=== PATIENT | male | born 1955 | race Hispanic/Latino ===

== ENCOUNTER 2016-12-01 11:08 | Emergency (ER) | payer MEDICARE ==
[2016-12-01 11:09] VITALS: PULSE 120; BMI 19.8
[2016-12-01 11:20] VITALS: RESP 18; TEMP 97.9
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
--- NOTE | 2016-12-01 12:41 | RAD ---
PROCEDURE: Radiographs of the Chest and Left Ribs. HISTORY: fall COMPARISON: 12/20/2015. TECHNIQUE: Frontal radiograph of the chest and multiple oblique radiographs of the left ribs were obtained. FINDINGS: LEFT RIBS: No fracture or focal lesion visualized. LUNGS: Clear. PLEURA: No pneumothorax or pleural fluid. CARDIOVASCULAR: Evaluation limited due to steep oblique positioning. Grossly normal. OTHER FINDINGS: None. IMPRESSION: Unremarkable radiographs of the chest and left ribs. No left rib fracture.
[2016-12-01 13:27] VITALS: BP 141/73; PULSE 80; O2SAT 98
--- NOTE | 2016-12-01 13:36 | RAD ---
PROCEDURE: Radiographs of the Left Shoulder HISTORY: fall COMPARISON: No prior. FINDINGS: BONES: Normal. No fracture. JOINTS: Normal. Glenohumeral and acromioclavicular joints preserved. No osteoarthritis. SOFT TISSUES: Normal. OTHER FINDINGS: None. IMPRESSION: Normal radiographs of the left shoulder.
== END 2016-12-01 13:44 | disposition home or self-care (01) ==
LOC: ED 11:08
DX: S29.9XXA Unspecified injury of thorax, initial encounter (principal); V19.3XXA Pedal cyclist (driver) (passenger) injured in unspecified nontraffic accident, initial encounter; Y93.55 Activity, bike riding; I10 Essential (primary) hypertension; E11.9 Type 2 diabetes mellitus without complications
CPT/HCPCS: 71101; 73030; 96372; 99283; J1885

== ENCOUNTER 2017-06-13 15:15 | Inpatient (IN) | payer MEDICARE, MEDICAID, OTHER ==
[2017-06-13 15:15] VITALS: PULSE 120
[2017-06-13 15:29] VITALS: BMI 30.4
--- NOTE | 2017-06-13 15:52 | ED PDOC ---
Arrival/HPI - General Time Seen by Provider: 06/13/17 15:24 Historian: Patient - History of Present Illness Narrative History of Present Illness (Text): 06/13/17 15:49 A 62 year old female, whose past medical history includes hypertension, diabetes and atrial fibrillation, presents to the emergency department complaining of diffuse abdominal discomfort for 3 days. Patient describes it as a cramping sensation. He notes associated generalized weakness and diaphoresis. Patient denies any fever, chills, nausea, vomiting, chest pain, shortness of breath or any other complaints. Time/Duration: Other (3 days) Symptom Course: Unchanged Quality: Other Context: Home Past Medical History - Provider Review Nursing Documentation Reviewed: Yes - Infectious Disease Hx of Infectious Diseases: None - Tetanus Immunization Tetanus Immunization: Unknown - Cardiac Hx Hypertension: Yes - Pulmonary Hx Tuberculosis: No - Neurological HX Cerebrovascular Accident: No Hx Seizures: No - HEENT Hx HEENT Disorder: (left eye intraocular lens implant) - Renal Hx Kidney Stones: Yes - Endocrine/Metabolic Hx Diabetes Mellitus Type 2: Yes - Hematological/Oncological Hx Cancer: No Hx Hepatitis C: Yes - Musculoskeletal/Rheumatological Hx Falls: No - Gastrointestinal Hx Gastrointestinal Disorders: (hiatal hernia) - Genitourinary/Gynecological Hx Sexually Transmitted Diseases: No - Psychiatric Hx Depression: Yes Hx Substance Use: No - Surgical History Hx Orthopedic Surgery: Yes (multiple orthopedic) - Anesthesia Hx Anesthesia Reactions: No Hx Malignant Hyperthermia: No - Suicidal Assessment Feels Threatened In Home Enviroment: No Family/Social History - Physician Review Nursing Documentation Reviewed: Yes Family/Social History: No Known Family HX Smoking Status: Never Smoked Hx Alcohol Use: No Hx Substance Use: No Hx Substance Use Treatment: No Allergies/Home Meds Allergies/Adverse Reactions: Allergies TOBACCO Allergy (Uncoded 12/01/16 11:20) VOMITING The smoke from tobacco Home Medications: Home Meds Medication Instructions Recorded Confirmed Alprazolam [Xanax] 2 mg PO DAILY 06/14/17 06/14/17 Ramipril [Altace] 1 cap PO ONCE 06/14/17 06/14/17 Sitagliptin Phos/Metformin HCl 1 tab PO BID 06/14/17 06/14/17 [Janumet 50-1,000 mg Tablet] Review of Systems - Physician Review All systems were reviewed & negative as marked: Yes - Review of Systems Constitutional: Other (Generalized weakness). absent: Fevers, Night Sweats Respiratory: absent: SOB Cardiovascular: absent: Chest Pain Gastrointestinal: Abdominal Pain. absent: Nausea, Vomiting Endocrine: Diaphoresis Physical Exam Vital Signs Reviewed: Yes Vital Signs Temp Pulse Resp BP Pulse Ox 06/13/17 19:30 98.2 F 80 16 168/86 H 96 06/13/17 19:11 79 20 151/104 H 96 06/13/17 17:15 75 18 104/58 L 95 06/13/17 15:40 98.0 F 77 16 102/44 L 94 L 06/13/17 15:39 98.0 F 77 18 102/44 L 93 L Temperature: Afebrile Blood Pressure: Hypotensive Pulse: Regular Respiratory Rate: Normal Appearance: Positive for: Well-Appearing, Non-Toxic, Comfortable Pain Distress: None Mental Status: Positive for: Alert and Oriented X 3 Finger Stick Blood Glucose: 333 - Systems Exam Head: Present: Atraumatic, Normocephalic Pupils: Present: PERRL Extroacular Muscles: Present: EOMI Conjunctiva: Present: Normal Mouth: Present: Moist Mucous Membranes Neck: Present: Normal Range of Motion Respiratory/Chest: Present: Clear to Auscultation, Good Air Exchange. No: Respiratory Distress, Accessory Muscle Use Cardiovascular: Present: Regular Rate and Rhythm, Normal S1, S2. No: Murmurs Abdomen: Present: Normal Bowel Sounds. No: Tenderness, Distention, Peritoneal Signs Back: Present: Normal Inspection Upper Extremity: Present: Normal Inspection. No: Cyanosis, Edema Lower Extremity: Present: Normal Inspection. No: Edema Neurological: Present: GCS=15, CN II-XII Intact, Speech Normal Skin: Present: Warm, Dry, Normal Color. No: Rashes Psychiatric: Present: Alert, Oriented x 3, Normal Insight, Normal Concentration Medical Decision Making ED Course and Treatment: 06/13/17 15:49 Impression: A 62 year old male with abdominal cramps. Plan: -- Chest xray -- EKG -- Labs -- Urinalysis -- Reassess and disposition Progress Notes: EKG shows NSR at [address]/T wave changes. Interpreted by me. 06/16/17 08:02 pt with dka. accepted to icu and dr ochoa service. - Lab Interpretations Lab Results: 06/13/17 16:00 06/13/17 16:00 Lab Results 06/13/17 17:45: Urine Color Yellow, Urine Appearance Clear, Urine pH 5.5, Ur Specific [place] >= 1.030, Urine Protein 100 H, Urine Glucose (UA) >=1000, Urine Ketones 40 H, Urine Blood Moderate H, Urine Nitrate Negative, Urine Bilirubin Negative, Urine Urobilinogen 0.2, Ur Leukocyte Esterase Negative, Urine RBC 0 - 2, Urine WBC 0 - 2, Ur Epithelial Cells 0 - 2, Urine Bacteria Few , Fine Granular Casts 0 - 2, Coarse Granular Casts Trace H 06/13/17 16:54: pO2 63 H, VBG pH 7.34, VBG pCO2 28.0 L, VBG HCO3 15.1 L, VBG Total CO2 16.0 L, VBG O2 Sat (Calc) 93.2 H, VBG Base Excess -9.2 L, VBG Potassium 4.0, Glucose 425 H* D, Lactate 1.6, FiO2 21.0, Sodium 131.0 L, Chloride 96.0 L, Venous Blood Potassium 4.0 06/13/17 16:00: Sodium 134, Potassium 4.3, Chloride 98, Carbon Dioxide 16 L, Anion Gap 24 H, BUN 27 H, Creatinine 1.0, Est GFR ( Amer) > 60, Est GFR ( Non-Af Amer) > 60, Random Glucose 404 H* D, Calcium 10.3, Magnesium 1.8, Total Bilirubin 1.5 H, AST 57, ALT 103 H, Alkaline Phosphatase 111, Lactate Dehydrogenase 510, Total Creatine Kinase 94, Troponin I < 0.01 D, Total Protein 9.0 H, Albumin 4.9 H, Globulin 4.2, Albumin/Globulin Ratio 1.2, Lipase 39 06/13/17 16:00: PT 11.1, INR 1.02, APTT 30.3 06/13/17 16:00: WBC 13.5 H D, RBC 5.83, Hgb 16.7, Hct 48.4, MCV 83.0, MCH 28.6, MCHC 34.5, RDW 14.1, Plt Count 234, MPV 10.9, Gran % 86.7 H, Lymph % (Auto) 10.1 L, [place] % (Auto) 3.0, Eos % (Auto) 0.1 L, Baso % (Auto) 0.1, Gran # 11.69 H , Lymph # 1.4, [place] # 0.4, Eos # 0.0, Baso # 0.02 I have reviewed the lab results: Yes - RAD Interpretation Radiology Orders: 06/13/17 15:47 CHEST PORTABLE [RAD] Stat 06/13/17 15:55 DUPLEX LOWER EXTRM VEIN BILAT [US] Stat - Medication Orders Current Medication Orders: Alprazolam (Xanax) 1 mg PO TID PRN; Protocol PRN Reason: Anxiety Alprazolam (Xanax) 2 mg PO HS [facility] PRN Reason: Protocol Stop: 06/22/17 22:01 Last Admin: 06/15/17 23:12 Dose: 2 mg Behavioural Document 06/15/17 23:12 CDL (Rec: 06/15/17 23:13 CDL [place] [id number]) Maintenance Maintenance Dose Yes Docusate Sodium (Colace) 100 mg PO DAILY [facility] Last Admin: 06/15/17 09:21 Dose: 100 mg Last Bowel Movement Document 06/15/17 09:21 JUR (Rec: 06/15/17 09:21 JUR [facility] Last Bowel Movement Last Bowel Movement 06/13/17 Glipizide (Glucotrol) 10 mg PO 0730,1630 [facility] Last Admin: 06/16/17 07:52 Dose: 10 mg Insulin Detemir (Levemir) 10 unit SC Q12 [facility] Last Admin: 06/15/17 23:09 Dose: Not Given Non-Admin Reason: Blood Sugar Parameter MAR Blood Glucose Document 06/15/17 23:09 CDE (Rec: 06/15/17 23:09 CDE [id number]) Blood Glucose Finger Stick Blood Glucose (70-120) 160 Insulin Human Lispro (Humalog Med) 0 units SC ACHS [facility] PRN Reason: Protocol Last Admin: 06/16/17 07:51 Dose: 1 units MAR Blood Glucose Document 06/16/17 07:51 RDS (Rec: 06/16/17 07:52 RDS [id number]) Blood Glucose Finger Stick Blood Glucose (70-120) 164 Subcutaneous Administrations Document 06/16/17 07:51 RDS (Rec: 06/16/17 07:52 RDS [id number]) Charges for Administration # of Subcutaneous Administrations 1 Lisinopril (Zestril) 10 mg PO DAILY [facility] Last Admin: 06/15/17 13:41 Dose: 10 mg Metformin HCl (Glucophage) 500 mg PO BID [facility] Last Admin: 06/15/17 17:34 Dose: 500 mg Morphine Sulfate (Morphine) 2 mg IVP Q4H PRN PRN Reason: Pain, severe (8-10) Ondansetron HCl (Zofran Inj) 4 mg IVP Q6H PRN PRN Reason: Nausea/Vomiting Last Admin: 06/14/17 08:34 Dose: 4 mg IVP Administration Document 06/14/17 08:34 [facility] (Rec: 06/14/17 08:34 [facility]) Charges for Administration # of IVP Administrations 1 Oxycodone/Acetaminophen (Percocet 5/325 Mg Tab) 1 tab PO Q6H PRN PRN Reason: Pain, moderate (4-7) Stop: 06/16/17 19:31 Pantoprazole Sodium (Protonix Ec Tab) 40 mg PO 0600 [facility] Last Admin: 06/16/17 06:02 Dose: 40 mg Sitagliptin Phosphate (Januvia) 100 mg PO DAILY [facility] Last Admin: 06/15/17 09:25 Dose: 100 mg Discontinued Medications Acetaminophen (Tylenol 325mg Tab) 650 mg PO STAT STA Stop: 06/14/17 19:45 Last Admin: 06/14/17 20:02 Dose: 650 mg [facility] Pain/Vitals Document 06/14/17 20:02 [facility] (Rec: 06/14/17 20:04 [facility] Pain Reassessment Is This A Pain ReAssessment? No Sleep Is patient sleeping during reassessment? No Presence of Pain Presence of Pain Yes Pain Scale Used Pain Scale Used Numeric Location Pain Location Body District Manager In Training Description Intermittent Intensity 8 Scale Used Numeric Site Observation headache Pain Behavior Facial Grimacing Aggravating Factors Changing Position Alleviating Factors Medication Re-Assess: [facility] Pain/Vitals Document 06/14/17 21:02 MHA (Rec: 06/15/17 04:56 [facility] Pain Reassessment Is This A Pain ReAssessment? Yes Sleep Is patient sleeping during reassessment? No Presence of Pain Presence of Pain No Pain Scale Used Pain Scale Used Numeric Alprazolam (Xanax) 1 mg PO ONCE ONE PRN Reason: Protocol Stop: 06/14/17 12:35 Last Admin: 06/14/17 16:21 Dose: 1 mg Behavioural Document 06/14/17 16:21 MMA (Rec: 06/14/17 16:21 MMA [facility] Maintenance Maintenance Dose Yes Nonmedicinal Nonmedicinal Interventions Therapeutic Communication Behavior Behavior for Medication: Anxiety Alprazolam (Xanax) 1 mg PO ONCE ONE PRN Reason: Protocol Stop: 06/14/17 16:16 Last Admin: 06/14/17 17:02 Dose: Alprazolam (Xanax) 1 mg PO STAT STA PRN Reason: Protocol Stop: 06/14/17 22:04 Last Admin: 06/14/17 22:15 Dose: 1 mg Behavioural Document 06/14/17 22:15 [facility] (Rec: 06/14/17 22:15 [facility] Maintenance Maintenance Dose Yes Nonmedicinal Nonmedicinal Interventions Activity Behavior Behavior for Medication: Anxiety Re-Assess: Reassess Psych Meds Document 06/14/17 23:15 [facility]HA (Rec: 06/15/17 04:55 MHA [facility] Reassess Psych Med Effective Alprazolam (Xanax) 0.5 mg PO TID PRN; Protocol PRN Reason: Anxiety Last Admin: 06/15/17 09:21 Dose: 0.5 mg Behavioural Document 06/15/17 09:21 JUR (Rec: 06/15/17 09:23 JUR [facility]) Maintenance Maintenance Dose Yes Behavior Behavior for Medication: Anxiety Clonidine HCl (Catapres) 0.1 mg PO STAT STA Stop: 06/14/17 19:44 Last Admin: 06/14/17 20:02 Dose: 0.1 mg MAR Pulse and Blood Pressure Document 06/14/17 20:02 [facility] (Rec: 06/14/17 20:02 [facility] Pulse Pulse Rate (60-90) 68 Blood Pressure Blood Pressure (100/60-150/90) 165/83 Hydralazine HCl (Apresoline) 5 mg IVP ONCE ONE Stop: 06/14/17 16:09 Last Admin: 06/14/17 16:18 Dose: 5 mg IVP Administration Document 06/14/17 16:18 MMA (Rec: 06/14/17 16:18 MMA [facility]) Charges for Administration # of IVP Administrations 1 MAR Pulse and Blood Pressure Document 06/14/17 16:18 [facility] (Rec: 06/14/17 16:18 [facility]) Pulse Pulse Rate (60-90) 50 Blood Pressure Blood Pressure (100/60-150/90) 199/85 Sodium Chloride (Sodium Chloride 0.9%) 1,000 mls @ 999 mls/hr IV .Q1H1M STA Stop: 06/13/17 17:26 Last Admin: 06/13/17 17:29 Dose: 999 mls/hr eMAR Start Stop Document 06/13/17 17:29 MS (Rec: 06/13/17 17:31 MS [facility]) Intravenous Solution Start Date 06/13/17 Start Time 17:30 Sodium Chloride (Sodium Chloride 0.9%) 1,000 mls @ 999 mls/hr IV .Q1H1M STA Stop: 06/13/17 18:07 Last Admin: 06/13/17 17:41 Dose: 999 mls/hr eMAR Start Stop Document 06/13/17 17:41 [facility] (Rec: 06/13/17 17:42 [facility] Intravenous Solution Start Date 06/13/17 Start Time 17:41 End Date 06/13/17 End time 18:14 Total Infusion Time 33 Insulin Human Regular 100 (units/ Sodium Chloride) 100 mls @ 5 mls/hr IV .Q20H PRN; Protocol; 5 UNITS/HR PRN Reason: TITRATE PER MD ORDER Last Titration: 06/14/17 10:03 Dose: 0 units/hr, 0 mls/hr Titration Intervention Document 06/14/17 10:03 [facility] (Rec: 06/14/17 12:04 [facility]) Titration Intake Titration Intake 26 Cumulative Intake 60 Cumulative Intake (Rx) 60 Waste Amount 0 Container Volume 40 Titration Dosing Titration Dose 0 IV Rate 0 Intake/Decrease Paused Cumulative Dose 60 Sodium Chloride (Sodium Chloride 0.9%) 1,000 mls @ 150 mls/hr IV .Q6H40M [facility] Last Admin: 06/14/17 03:44 Dose: 150 mls/hr eMAR Start Stop Document 06/14/17 03:44 B.P (Rec: 06/14/17 03:44 B.P [id number]) Intravenous Solution Start Date 06/14/17 Start Time 03:44 Famotidine (Pepcid 20mg/50ml Premix) 20 mg in 50 mls @ 100 mls/hr IVPB STAT ONE Stop: 06/14/17 01:53 Last Admin: 06/14/17 01:29 Dose: 100 mls/hr eMAR Start Stop Document 06/14/17 01:29 B.P (Rec: 06/14/17 01:29 B.P [id number]) Intravenous Solution Start Date 06/14/17 Start Time 01:29 Dextrose/Sodium Chloride (Dextrose 5%/0.45% Ns 1000 Ml) 1,000 mls @ 150 mls/hr IV .Q6H40M ANDREW Last Admin: 06/14/17 06:56 Dose: 150 mls/hr eMAR Start Stop Document 06/14/17 06:56 B.P (Rec: 06/14/17 06:56 B.P [email or web address]) Intravenous Solution Start Date 06/14/17 Start Time 06:56 Insulin Human Regular (Humulin R) 6 units IV STAT STA Stop: 06/13/17 17:07 Last Admin: 06/13/17 17:37 Dose: 6 units eMAR Start Stop Document 06/13/17 17:37 MS (Rec: 06/13/17 17:39 [facility] Intravenous Solution Start Date 06/13/17 Start Time 17:38 End Date 06/13/17 End time 17:39 Total Infusion Time 1 OCT Blood Glucose Document 06/13/17 17:37 MS (Rec: 06/13/17 17:39 [facility] Blood Glucose Finger Stick Blood Glucose (70-120) 333 Ketorolac Tromethamine (Toradol) 15 mg IVP STAT STA Stop: 06/13/17 15:56 Last Admin: 06/13/17 16:08 Dose: 15 mg [facility] Pain Assessment Document 06/13/17 16:08 MS (Rec: 06/13/17 16:11 [facility] Pain Reassessment Is this a pain reassessment? No Sleep Is patient sleeping during reassessment? No Presence of Pain Presence of Pain Yes Pain Scale Used Pain Scale Used Numeric Location Left, Right or Bilateral Bilateral Upper or Lower Lower Pain Location Body Site Leg Description Description Cramping Intensity of Pain at present 4 Pain Behavior Irritability Restlessness Perspiration Aggravating Factors Changing Position Standing Alleviating Factors/Management Medication Techniques IVP Administration Document 06/13/17 16:08 MS (Rec: 06/13/17 16:11 MS [facility]) Charges for Administration # of IVP Administrations 1 Morphine Sulfate (Morphine) 2 mg IVP STAT STA Stop: 06/13/17 18:36 Last Admin: 06/13/17 18:54 Dose: 2 mg MAR Pain Assessment Document 06/13/17 18:54 MS (Rec: 06/13/17 18:55 MS [facility]) Pain Reassessment Is this a pain reassessment? Yes Sleep Is patient sleeping during reassessment? No Presence of Pain Presence of Pain Yes Pain Scale Used Pain Scale Used Numeric Location Left, Right or Bilateral Bilateral Upper or Lower Lower Pain Location Body Site Leg Description Description Intermittent Intensity of Pain at present 8 Pain Behavior Moaning Irritability Restlessness Alleviating Factors/Management Medication Techniques Alleviating Factors Medication Pain not relieved and LIP/MD was No notified IVP Administration Document 06/13/17 18:54 MS (Rec: 06/13/17 18:55 MS [facility]) Charges for Administration # of IVP Administrations 1 Pantoprazole Sodium (Protonix Inj) 40 mg IVP DAILY [facility] Last Admin: 06/14/17 08:59 Dose: 40 mg IVP Administration Document 06/14/17 08:59 MMA (Rec: 06/14/17 09:00 MMA [facility] Charges for Administration # of IVP Administrations 1 Pantoprazole Sodium (Protonix Inj) 40 mg IVP STAT STA Stop: 06/14/17 03:45 Last Admin: 06/14/17 03:53 Dose: 40 mg IVP Administration Document 06/14/17 03:53 B.P (Rec: 06/14/17 03:53 B.P [email or web address] Charges for Administration # of IVP Administrations 1 - Scribe Statement The provider has reviewed the documentation as recorded by the Scribe Renu Weathers Provider Scribe Attestation: All medical record entries made by the Scribe were at my direction and personally dictated by me. I have reviewed the chart and agree that the record accurately reflects my personal performance of the history, physical exam, medical decision making, and the department course for this patient. I have also personally directed, reviewed, and agree with the discharge instructions and disposition. Disposition/Present on Arrival - Present on Arrival Any Indicators Present on Arrival: No History of DVT/PE: No History of Uncontrolled Diabetes: Yes Urinary Catheter: No History Surgical Site Infection Following: None - Disposition Have Diagnosis and Disposition been Completed?: Yes Diagnosis: Diabetic ketoacidosis Disposition: HOSPITALIZED Disposition Time: 07:00 Condition: FAIR Critical Care Time - Critical Care Note Total Time (in mins): 45 Documented critical care: time excludes all time spent performing seperately billable procedures.
[2017-06-13 16:12] LABS: BASO # 0.02 K/mm3 (0.0-2.0); BASO % 0.1 % (0.0-3.0); EOS % 0.1 % (1.5-5.0); GRAN # 11.69 (1.4-6.5); GRAN % 86.7 % (50.0-68.0); HEMATOCRIT 48.4 % (42.0-52.0); LYMPH # 1.4 (1.2-3.4); LYMPH % 10.1 % (22.0-35.0); MEAN CORPUSCULAR HEMOGLOBIN 28.6 pg (25.0-35.0); MEAN CORPUSCULAR HGB CONC 34.5 g/dl (31.0-37.0); MEAN PLATELET VOLUME 10.9 fl (7.0-11.0); MONO # 0.4 (0.1-0.6); RED CELL DISTRIBUTION WIDTH 14.1 % (11.5-14.5); WHITE BLOOD COUNT 13.5 10^3/ul (4.5-11.0)
[2017-06-13 16:22] LABS: INR 1.02 (0.93-1.08); PARTIAL THROMBOPLASTIN TIME 30.3 Seconds (25.1-36.5)
[2017-06-13 16:23] LABS: ALB/GLOB RATIO 1.2 (1.1-1.8); ALKALINE PHOSPHATASE 111 U/L (38-126); ALT/SGPT 103 U/L (7-56); AST/SGOT 57 U/L (17-59); BILIRUBIN,TOTAL 1.5 mg/dL (0.2-1.3); BLOOD UREA NITROGEN 27 mg/dL (7-21); CALCIUM 10.3 mg/dL (8.4-10.5); CARBON DIOXIDE 16 mmol/L (21-33); CHLORIDE 98 mmol/L (98-107); GFR AFRICAN-AMERICAN > 60; LIPASE 39 U/L (23-300); MAGNESIUM 1.8 mg/dL (1.7-2.2); POTASSIUM 4.3 mmol/L (3.6-5.0); SODIUM 134 mmol/L (132-148)
[2017-06-13] MEDS ORDERED: Sodium Chloride 0.9% 1,000 ML IV STA ×2 (16:26→17:07)
[2017-06-13 16:30] LABS: GLUCOSE,RANDOM 404 mg/dL (70-110)
[2017-06-13 16:34] LABS: TROPONIN I < 0.01 ng/mL
--- NOTE | 2017-06-13 16:47 | RAD ---
HISTORY: weakness COMPARISON: 12/01/2016 FINDINGS: LUNGS: No active pulmonary disease. PLEURA: No significant pleural effusion identified, no pneumothorax apparent. CARDIOVASCULAR: Normal. OSSEOUS STRUCTURES: No significant abnormalities. VISUALIZED UPPER ABDOMEN: Normal. OTHER FINDINGS: None. IMPRESSION: No active disease.
[2017-06-13 16:58] LABS: VENOUS BLOOD GAS BASE EXCESS -9.2 mmol/L (0.0-2.0); VENOUS BLOOD PH 7.34 (7.32-7.43)
[2017-06-13] MEDS ORDERED: Insulin Regular 1 UNITS/0.01 ML ML IV STA (17:06)
--- NOTE | 2017-06-13 17:40 | US ---
HISTORY: Leg pain and swelling. Evaluate for DVT PHYSICIAN(S): Alexx Bhat MD. TECHNIQUE: Duplex sonography and color-flow Doppler with graded compression were used to evaluate the deep venous systems of both lower extremities. FINDINGS: The visualized deep venous systems of both lower extremities are sonographically normal and compressible. Normal wave forms and augmentation are seen. There is no sonographic evidence for deep venous thrombosis in the visualized segments of both lower extremities. IMPRESSION: No sonographic evidence for deep venous thrombosis in the visualized segments of both lower extremities.
[2017-06-13 18:06] LABS: PH,URINE 5.5 (4.7-8.0); URINE BILIRUBIN NEGATIVE (NEGATIVE); URINE BLOOD MODERATE (NEGATIVE); URINE GLUCOSE (UA) >=1000 mg/dL (NEGATIVE); URINE KETONE 40 mg/dL (NEGATIVE); URINE LEUKOCYTE ESTERASE NEGATIVE Leu/uL (NEGATIVE); URINE PROTEIN 100 mg/dL (<30 mg/dL); URINE UROBILINOGEN 0.2 E.U./dL (<1 E.U./dL)
[2017-06-13 18:11] LABS: URINE APPEARANCE CLEAR (CLEAR); URINE COLOR YELLOW (YELLOW)
[2017-06-13 18:14] LABS: URINE BACTERIA FEW (NEG); URINE EPITHELIAL CELLS 0 - 2 /hpf (0-5); URINE RBC 0 - 2 /hpf (0-2); URINE WBC 0 - 2 /hpf (0-6)
[2017-06-13] MEDS ORDERED: Insulin Regular 100 UNITS in Sodium Chloride 0.9% 99 ML IV PRN (18:21)
[2017-06-13] MEDS ORDERED: Morphine 2 mg/ml ISec IVP STA (18:35)
--- NOTE | 2017-06-13 18:55 | CP.PCM.CON ---
History of Present Illness - History of Present Illness History of Present Illness: CRITICAL CARE CONSULT NOTE Patient is 62yo male with PMhx of hypertension, diabetes and atrial fibrillation , presented with R foot pain. Patient reports he has cramping and R foot pain for few days now and also ran out of his Dibetic meds, Metformin, Januvia. Pt found to have increased AG met acidosis with hyperglycemia, mild DKA. Denies fever, chills, cough, chest pain, sob, palpitations, MAHAN, dizziness. No other constitutional symptoms. PMhx: hypertension, diabetes and atrial fibrillation, PSHx: as per HPI Allergies: NKDA Meds: as per EMR ROS: as per HPI Review of Systems - Review of Systems Review of Systems: as per hpi Past Patient History - Infectious Disease Hx of Infectious Diseases: None - Tetanus Immunizations Tetanus Immunization: Unknown - Past Social History Smoking Status: Never Smoked - CARDIAC Hx Hypertension: Yes - PULMONARY Hx Tuberculosis: No - NEUROLOGICAL HX Cerebrovascular Accident: No Hx Seizures: No - HEENT Hx HEENT Problems: (left eye intraocular lens implant) - RENAL Hx Kidney Stones: Yes - ENDOCRINE/METABOLIC Hx Diabetes Mellitus Type 2: Yes - HEMATOLOGICAL/ONCOLOGICAL Hx Cancer: No Hx Hepatitis C: Yes - MUSCULOSKELETAL/RHEUMATOLOGICAL Hx Falls: No - GASTROINTESTINAL Hx Gastrointestinal Disorders: (hiatal hernia) - GENITOURINARY/GYNECOLOGICAL Hx Sexually Transmitted Disorders: No - PSYCHIATRIC Hx Depression: Yes Hx Substance Use: No - SURGICAL HISTORY Hx Orthopedic Surgery: Yes (multiple orthopedic) - ANESTHESIA Hx Anesthesia Reactions: No Hx Malignant Hyperthermia: No Meds Allergies/Adverse Reactions: Allergies Allergy/AdvReac Type Severity Reaction Status Date / Time TOBACCO Allergy VOMITING Uncoded 12/01/16 11:20 - Medications Medications: Current Medications Insulin Human Regular 100 (units/ Sodium Chloride) 100 mls @ 5 mls/hr IV .Q20H PRN; Protocol; 5 UNITS/HR PRN Reason: TITRATE PER MD ORDER Physical Exam - Constitutional Appears: Well, Non-toxic - Head Exam Head Exam: ATRAUMATIC, NORMAL INSPECTION - ENT Exam ENT Exam: Mucous Membranes Moist - Neck Exam Neck exam: Positive for: Normal Inspection - Respiratory Exam Respiratory Exam: Clear to Auscultation Bilateral, NORMAL BREATHING PATTERN - Cardiovascular Exam Cardiovascular Exam: REGULAR RHYTHM, +S1, +S2 - GI/Abdominal Exam GI & Abdominal Exam: Normal Bowel Sounds, Soft - Extremities Exam Extremities exam: Positive for: normal inspection - Psychiatric Exam Psychiatric exam: Anxious - Skin Skin Exam: Normal Color, Warm Results - Vital Signs Recent Vital Signs: Last Vital Signs Temp 98.0 F 06/13/17 15:40 Pulse 75 06/13/17 17:15 Resp 18 06/13/17 17:15 BP 104/58 L 06/13/17 17:15 Pulse Ox 95 06/13/17 17:15 - Labs Result Diagrams: 06/13/17 16:00 06/13/17 16:00 Labs: Laboratory Results - last 24 hr 06/13/17 06/13/17 06/13/17 16:00 16:00 16:00 WBC 13.5 H D RBC 5.83 Hgb 16.7 Hct 48.4 MCV 83.0 MCH 28.6 MCHC 34.5 RDW 14.1 Plt Count 234 MPV 10.9 Gran % 86.7 H Lymph % (Auto) 10.1 L [place] % (Auto) 3.0 Eos % (Auto) 0.1 L Baso % (Auto) 0.1 Gran # 11.69 H Lymph # 1.4 [place] # 0.4 Eos # 0.0 Baso # 0.02 PT 11.1 INR 1.02 APTT 30.3 pO2 VBG pH VBG pCO2 VBG HCO3 VBG Total CO2 VBG O2 Sat (Calc) VBG Base Excess VBG Potassium Glucose Lactate FiO2 Sodium 134 Potassium 4.3 Chloride 98 Carbon Dioxide 16 L Anion Gap 24 H BUN 27 H Creatinine 1.0 Est GFR ( Amer) > 60 Est GFR (Non-Af Amer) > 60 Random Glucose 404 H* D Calcium 10.3 Magnesium 1.8 Total Bilirubin 1.5 H AST 57 ALT 103 H Alkaline Phosphatase 111 Lactate Dehydrogenase 510 Total Creatine Kinase 94 Troponin I < 0.01 D Total Protein 9.0 H Albumin 4.9 H Globulin 4.2 Albumin/Globulin Ratio 1.2 Lipase 39 Venous Blood Potassium Urine Color Urine Appearance Urine pH Ur Specific [place] Urine Protein Urine Glucose (UA) Urine Ketones Urine Blood Urine Nitrate Urine Bilirubin Urine Urobilinogen Ur Leukocyte Esterase Urine RBC Urine WBC Ur Epithelial Cells Urine Bacteria Fine Granular Casts Coarse Granular Casts 06/13/17 06/13/17 16:54 17:45 WBC RBC Hgb Hct MCV MCH MCHC RDW Plt Count MPV Gran % Lymph % (Auto) [place] % (Auto) Eos % (Auto) Baso % (Auto) Gran # Lymph # [place] # Eos # Baso # PT INR APTT pO2 63 H VBG pH 7.34 VBG pCO2 28.0 L VBG HCO3 15.1 L VBG Total CO2 16.0 L VBG O2 Sat (Calc) 93.2 H VBG Base Excess -9.2 L VBG Potassium 4.0 Glucose 425 H* D Lactate 1.6 FiO2 21.0 Sodium 131.0 L Potassium Chloride 96.0 L Carbon Dioxide Anion Gap BUN Creatinine Est GFR ( Amer) Est GFR (Non-Af Amer) Random Glucose Calcium Magnesium Total Bilirubin AST ALT Alkaline Phosphatase Lactate Dehydrogenase Total Creatine Kinase Troponin I Total Protein Albumin Globulin Albumin/Globulin Ratio Lipase Venous Blood Potassium 4.0 Urine Color Yellow Urine Appearance Clear Urine pH 5.5 Ur Specific [place] >= 1.030 Urine Protein 100 H Urine Glucose (UA) >=1000 Urine Ketones 40 H Urine Blood Moderate H Urine Nitrate Negative Urine Bilirubin Negative Urine Urobilinogen 0.2 Ur Leukocyte Esterase Negative Urine RBC 0 - 2 Urine WBC 0 - 2 Ur Epithelial Cells 0 - 2 Urine Bacteria Few Fine Granular Casts 0 - 2 Coarse Granular Casts Trace H Assessment & Plan - Assessment and Plan (Free Text) Assessment: 62yo male a/w DKA DKA Hypertension Atrial fibrillation - currently afebrile, HD stable, comfortable, but anxious on exam, complaining of R toe pain - EKG with NSR, no acute ischemic changes - Labs demonstrate AG acidosis with hyperglycemia, mild DKA, ketones in the UA Recommend: - IV bolus 3L - Insulin drip 0.1u/kg/hr - FS q1h while on the drip - check Magnesium, Phos levels - panculture - check troponin - BP control - patient not on A/C, hx of AFIB? - consider XRay of foot - GI ppx - DVT ppx - Admit to MICU
[2017-06-13] MEDS ORDERED: Oxycodone/Acetaminophen 5/325 mg Tab PO PRN (19:20)
[2017-06-13] MEDS ORDERED: Morphine 2 mg/ml ISec IVP PRN (19:21)
[2017-06-13] MEDS: Sodium Chloride 0.9% 1,000 ML IV SCH (20:20)
[2017-06-13 21:23] LABS: BLOOD UREA NITROGEN 28 mg/dL (7-21); CALCIUM 9.2 mg/dL (8.4-10.5); CARBON DIOXIDE 17 mmol/L (21-33); CHLORIDE 105 mmol/L (98-107); GFR AFRICAN-AMERICAN > 60; GLUCOSE,RANDOM 272 mg/dL (70-110); MAGNESIUM 1.8 mg/dL (1.7-2.2); POTASSIUM 3.7 mmol/L (3.6-5.0); SODIUM 138 mmol/L (132-148)
[2017-06-14 00:40] LABS: BLOOD UREA NITROGEN 28 mg/dL (7-21); CALCIUM 9.1 mg/dL (8.4-10.5); CARBON DIOXIDE 19 mmol/L (21-33); CHLORIDE 104 mmol/L (98-107); GFR AFRICAN-AMERICAN > 60; GLUCOSE,RANDOM 259 mg/dL (70-110); POTASSIUM 3.7 mmol/L (3.6-5.0); SODIUM 138 mmol/L (132-148)
[2017-06-14 00:50] LABS: URINE BILIRUBIN SMALL (NEGATIVE); URINE BLOOD MODERATE (NEGATIVE); URINE GLUCOSE (UA) >=1000 mg/dL (NEGATIVE); URINE KETONE 40 mg/dL (NEGATIVE); URINE LEUKOCYTE ESTERASE NEGATIVE Leu/uL (NEGATIVE); URINE PROTEIN >=300 mg/dL (<30 mg/dL)
[2017-06-14 00:57] LABS: URINE APPEARANCE CLEAR (CLEAR); URINE COLOR YELLOW (YELLOW)
[2017-06-14 01:01] LABS: URINE BACTERIA RARE (NEG); URINE EPITHELIAL CELLS 0 - 2 /hpf (0-5); URINE WBC 0 - 2 /hpf (0-6)
[2017-06-14] MEDS ORDERED: Famotidine 20mg/50ml 20 MG/50 ML BAG IVPB ONE (01:24)
[2017-06-14] MEDS: Insulin Detemir 100 units/ml Vial (Levemir) SC SCH ×3 (02:12→21:51)
[2017-06-14] MEDS: Sodium Chloride 0.9% 1,000 ML IV SCH (03:44)
[2017-06-14 04:38] LABS: BASO # 0.01 K/mm3 (0.0-2.0); BASO % 0.2 % (0.0-3.0); EOS # 0.1 (0.0-0.7); EOS % 2.2 % (1.5-5.0); GRAN # 2.83 (1.4-6.5); HEMATOCRIT 40.8 % (42.0-52.0); LYMPH % 33.7 % (22.0-35.0); MEAN CELL VOLUME 86.1 fl (80.0-105.0); MEAN CORPUSCULAR HEMOGLOBIN 27.8 pg (25.0-35.0); MEAN CORPUSCULAR HGB CONC 32.4 g/dl (31.0-37.0); MONO # 0.9 (0.1-0.6); MONO % 15.9 % (1.0-6.0); RED CELL DISTRIBUTION WIDTH 13.6 % (11.5-14.5); WHITE BLOOD COUNT 5.9 10^3/ul (4.5-11.0)
[2017-06-14 04:39] LABS: BLOOD UREA NITROGEN 25 mg/dL (7-21); CALCIUM 8.7 mg/dL (8.4-10.5); CARBON DIOXIDE 16 mmol/L (21-33); CHLORIDE 106 mmol/L (98-107); GFR AFRICAN-AMERICAN > 60; GLUCOSE,RANDOM 232 mg/dL (70-110); SODIUM 135 mmol/L (132-148)
[2017-06-14] MEDS ORDERED: Dextrose 5%/0.45% NS 1,000 ML IV SCH (06:45)
--- NOTE | 2017-06-14 08:04 | CARD ---
APPROVED REPORT EKG Measurement Heart [id number] <Conclusion> Normal sinus rhythm with sinus arrhythmia Left axis deviation Possible inferior infarct, age undetermined RVCD Mildly prolonged QTc
[2017-06-14 08:35] LABS: BLOOD UREA NITROGEN 21 mg/dL (7-21); CALCIUM 8.5 mg/dL (8.4-10.5); CARBON DIOXIDE 18 mmol/L (21-33); CHLORIDE 106 mmol/L (98-107); GFR AFRICAN-AMERICAN > 60; GLUCOSE,RANDOM 236 mg/dL (70-110); POTASSIUM 3.8 mmol/L (3.6-5.0); SODIUM 136 mmol/L (132-148)
--- NOTE | 2017-06-14 09:50 | HP ---
HISTORY OF PRESENT ILLNESS: The patient is 62 years old, came to the emergency room because of bilateral leg swelling and pain and right foot pain. The patient states he was having shooting pain in his right foot radiating to his right leg, going on for few days. The patient is very noncompliant with his medication. I have not seen him for a couple of months. He has been going to a different doctor, but has not been very compliant. No history of nausea or vomiting. No chest pain, no shortness of breath. Complaint of feeling lightheaded at times. PAST MEDICAL HISTORY: Significant for: 1. Hypertension. 2. Non-insulin dependent diabetes. 3. Degenerative disk disease, status post disk surgery in the remote past. 4. History of AFib in the past and has ablation done since then, has been having regular heart rhythm and is not on any anticoagulant. 5. History of right foot fracture. 6. History of DVT. ALLERGIES: HE IS ALLERGIC TO TOBACCO. MEDICATIONS AT HOME: He is supposed to be on Januvia, metformin, sotalol 80 mg daily and atorvastatin 80 mg daily. SOCIAL HISTORY: He is single. Denies smoking, drinking or alcohol use. Currently, he is retired and he is disabled. REVIEW OF SYSTEMS: Complaining of right foot pain. PHYSICAL EXAMINATION GENERAL: He is awake, alert, oriented, able to communicate, answers appropriately. VITAL SIGNS: He is afebrile, pulse 80, respirations 16, blood pressure 168/86. LUNGS: Bilateral fair airflow. No rhonchi or crackles. HEART: S1 and S2 audible. ABDOMEN: Soft, obese, nontender. No rebound. No guarding. NEUROLOGIC: He is awake, alert, oriented, and communicative. LABORATORY DATA: WBC 13.5, hemoglobin 16, hematocrit 48, platelet of 234. PT 11.1, INR 1.02. Chemistry: Sodium 138, potassium 3.7, chloride 105, CO2 of 17, BUN 28, creatinine 1.0, blood sugar of 261. Urinalysis shows moderate blood, trace granular cast. Bilateral leg Doppler negative for DVT. Chemistry upon admission: Sodium 138, potassium 37, chloride 105, CO2 of 17, BUN 28, creatinine 1.0, blood sugar of 261. ALT 103, AST 57. ASSESSMENT: 1. Uncontrolled diabetes. 2. Diabetic ketoacidosis. 3. Hypertension. 4. Hyperlipidemia. 5. Chronic degenerative disk disease. PLAN: The patient is being admitted in the ICU with IV fluid resuscitation, monitor blood sugar, monitor electrolyte. Follow up this patient in the a.m. Lanette Pickett MD
--- NOTE | 2017-06-14 14:01 | PN ---
DATE: 06/14/2017 SUBJECTIVE: The patient is seen and examined at the bedside. He is comfortable. He talks in full sentences. He is not in respiratory or otherwise distress. PHYSICAL EXAMINATION: VITAL SIGNS: Heart rate 60, blood pressure 150/79, oxygen saturation 96% on room air, respiratory rate 20. ENT, HEAD AND NECK: Atraumatic. LUNGS: Clear to auscultation bilaterally. HEART: Regular rate and rhythm. S1 and S2 normal. ABDOMEN: Soft, nontender, and nondistended. MUSCULOSKELETAL: No C/C/E. NEUROLOGIC: The patient moves all extremities spontaneously. SKIN: Moist. PSYCHIATRIC: The patient is alert and oriented x3. LABORATORY DATA: WBC 5.9, hemoglobin 13.2, platelet count 153. Sodium 135, potassium 4, chloride 106, carbon dioxide 16, BUN 25, creatinine 0.8, glucose 233. INR 1.02. Urine is positive for ketones and glucose. MEDICATIONS: D5 half-normal saline 150 mL/hour, insulin drip 5 units/hour, Levemir 10 units subQ q. 12 (overlap to stop insulin drip), morphine p.r.n., Zofran p.r.n., Percocet p.r.n., Protonix. ASSESSMENT AND PLAN: This is a 62-year-old gentleman who presented with diabetic ketoacidosis. At present time, his anion gap almost closed and he will be due for another BMP in couple of hours. Longer-acting formulation of subQ insulin will be given 1 hour prior to discontinuation of insulin drip if anion gap is closed. At present time, the patient is not hypoglycemic. He is able to tolerate oral hydration and once off of drip will be started on oral nutrition. We will continue to target euvolemia, glycemia, normothermia, and oxygen saturation more than 90%. We will continue with deep vein thrombosis and gastrointestinal prophylaxis. Addendum: AG closed, levemir started along with RISS medium protocol, RI drip stopped, patient tolerates oral hydration and nutrition well ccm time 40 min Issa Vergara MD MALLY
[2017-06-14] MEDS: Insulin Lispro (humaLOG) MEDIUM Coverage SC SCH ×2 (17:06→21:50)
--- NOTE | 2017-06-14 20:47 | PN ---
DATE: SUBJECTIVE: The patient is a 62-year-old, seen and examined. He states he feels much better. His leg cramps are almost gone. He ate. No nausea or vomiting. PHYSICAL EXAMINATION VITAL SIGNS: He is afebrile, pulse 56, respiration 15, blood pressure 150/85. LUNGS: Bilateral fair airflow. No rhonchi or crackle. HEART: S1 and S2 audible. ABDOMEN: Soft and nontender. No rebound. No guarding. NEUROLOGIC: The patient is awake, alert, oriented, communicative. LABORATORY DATA: WBC is 5.9, hemoglobin 13, hematocrit 40.8, platelets of 153. Chemistry: Sodium 136, potassium 3.8, chloride 106, CO2 of 18, BUN 21, creatinine 0.9, blood sugar of 253. Urinalysis shows moderate blood and small bilirubin. ASSESSMENT: 1. Insulin-dependent diabetes. 2. Diabetic ketoacidosis secondary to noncompliance. 3. Chronic degenerative disc disease. 4. Electrolyte imbalance, seems to be improving. PLAN: Currently, the patient is on Levemir 10 units q.12. He admitted. He is getting Protonix and Lasix as needed. The patient seems to be out of DKA and will be transferred to regular floor. We will follow this patient in a.m. Lanette Pickett MD
--- NOTE | 2017-06-14 21:59 | CP.PCM.PN ---
Subjective - Date & Time of Evaluation Date of Evaluation: 06/14/17 Time of Evaluation: 21:58 - Subjective Subjective: Patient was seen at bedside. Complained of head ache, generalized, mild. No other complaints. Denied nausea, paraesthesia. 163/72,98.2*F This 62 year old male was admitted with bilateral leg swelling, right foot pain. Has PMH of HTN, NIDDM, degenerative disk disease, atrial fibrillation, right foot DVT. Objective - Vital Signs/Intake and Output Vital Signs (last 24 hours): Temp Pulse Resp BP Pulse Ox 98.6 F 68 29 H 165/83 H 98 06/14/17 20:00 06/14/17 20:02 06/14/17 20:00 06/14/17 20:02 06/14/17 20:00 Intake and Output: 06/14/17 06/15/17 18:59 06:59 Intake Total 28 Balance 28 - Medications Medications: Current Medications Alprazolam (Xanax) 1 mg PO STAT STA PRN Reason: Protocol Stop: 06/14/17 21:58 Docusate Sodium (Colace) 100 mg PO DAILY [facility] Last Admin: 06/14/17 12:12 Dose: 100 mg Insulin Human Regular 100 (units/ Sodium Chloride) 100 mls @ 5 mls/hr IV .Q20H PRN; Protocol; 5 UNITS/HR PRN Reason: TITRATE PER MD ORDER Last Titration: 06/14/17 10:03 Dose: 0 units/hr, 0 mls/hr Insulin Detemir (Levemir) 10 unit SC Q12 [facility] Last Admin: 06/14/17 21:51 Dose: 10 unit Insulin Human Lispro (Humalog Med) 0 units SC ACHS [facility] PRN Reason: Protocol Last Admin: 06/14/17 21:50 Dose: 3 units Morphine Sulfate (Morphine) 2 mg IVP Q4H PRN PRN Reason: Pain, severe (8-10) Ondansetron HCl (Zofran Inj) 4 mg IVP Q6H PRN PRN Reason: Nausea/Vomiting Last Admin: 06/14/17 08:34 Dose: 4 mg Oxycodone/Acetaminophen (Percocet 5/325 Mg Tab) 1 tab PO Q6H PRN PRN Reason: Pain, moderate (4-7) Stop: 06/16/17 19:31 Pantoprazole Sodium (Protonix Inj) 40 mg IVP DAILY [facility] Last Admin: 06/14/17 08:59 Dose: 40 mg - Labs Labs: 06/14/17 04:10 06/14/17 08:10 PT 11.1 SECONDS (9.4-12.5) 06/13/17 16:00 INR 1.02 (0.93-1.08) 06/13/17 16:00 APTT 30.3 Seconds (25.1-36.5) 06/13/17 16:00 - Constitutional Appears: Well, No Acute Distress - Head Exam Head Exam: ATRAUMATIC, NORMAL INSPECTION, NORMOCEPHALIC - Eye Exam Eye Exam: Normal appearance - ENT Exam ENT Exam: Normal External Ear Exam - Neck Exam Neck Exam: Normal Inspection - Respiratory Exam Respiratory Exam: NORMAL BREATHING PATTERN - Cardiovascular Exam Cardiovascular Exam: absent: JVD - GI/Abdominal Exam GI & Abdominal Exam: absent: Distended - Rectal Exam Rectal Exam: Deferred - Exam Additional comments: deferred. - Extremities Exam Extremities Exam: Normal Inspection - Back Exam Back Exam: NORMAL INSPECTION - Neurological Exam Neurological Exam: Alert, Awake, Oriented x3 - Psychiatric Exam Psychiatric exam: Normal Affect, Normal Mood - Skin Skin Exam: Normal Color Assessment and Plan - Assessment and Plan (Free Text) Assessment: Headache. Anxiety. HTN. NIDDM. Degenerative disk disease. Obesity. Plan: Tylenol 650 mg PO x 1. Clonidine 0.1 mg PO x 1. Later on Xanax 1 mg po was ordered for anxiety. Continue present management.
[2017-06-15] MEDS: Pantoprazole 40 mg EC Tab PO SCH (06:06)
[2017-06-15 06:23] LABS: BASO # 0.03 K/mm3 (0.0-2.0); BASO % 0.3 % (0.0-3.0); EOS # 0.2 (0.0-0.7); EOS % 1.4 % (1.5-5.0); GRAN # 7.6 (1.4-6.5); GRAN % 68.7 % (50.0-68.0); HEMATOCRIT 46.3 % (42.0-52.0); LYMPH # 2.6 (1.2-3.4); LYMPH % 23.6 % (22.0-35.0); MEAN CELL VOLUME 83.9 fl (80.0-105.0); MEAN CORPUSCULAR HEMOGLOBIN 28.4 pg (25.0-35.0); MEAN CORPUSCULAR HGB CONC 33.9 g/dl (31.0-37.0); MONO # 0.7 (0.1-0.6); RED CELL DISTRIBUTION WIDTH 14.5 % (11.5-14.5); WHITE BLOOD COUNT 11.1 10^3/ul (4.5-11.0)
[2017-06-15 06:34] LABS: BLOOD UREA NITROGEN 16 mg/dL (7-21); CALCIUM 9.2 mg/dL (8.4-10.5); CARBON DIOXIDE 25 mmol/L (21-33); CHLORIDE 105 mmol/L (98-107); GFR AFRICAN-AMERICAN > 60; GLUCOSE,RANDOM 281 mg/dL (70-110); POTASSIUM 3.9 mmol/L (3.6-5.0); SODIUM 141 mmol/L (132-148)
[2017-06-15] MEDS: Insulin Lispro (humaLOG) MEDIUM Coverage SC SCH ×4 (08:10→22:48)
[2017-06-15] MEDS: Insulin Detemir 100 units/ml Vial (Levemir) SC SCH ×2 (09:23→23:09)
--- NOTE | 2017-06-15 13:20 | PN ---
SUBJECTIVE: The patient is 62-year-old, seen and examined, states he feels lot better. His leg cramps are gone and blood sugar seems to be running fair. PHYSICAL EXAMINATION: VITAL SIGNS: He is afebrile, pulse 62, respiration 30, blood pressure 164/84. LUNGS: Bilateral fair airflow. No rhonchi or crackle. HEART: S1 and S2 audible. ABDOMEN: Soft and nontender. No rebound. No guarding. NEUROLOGIC: He is awake, alert, oriented, complain of back pain. EXTREMITIES: Bilateral legs no edema. LABORATORY DATA: WBC is 11.1, hemoglobin 15.7, hematocrit 46.3, platelets of 217. Chemistry: Sodium 141, potassium 3.9, chloride 105, CO2 of 25, BUN 16, creatinine 1.1, blood sugar of 287. ASSESSMENT: 1. Status post diabetic ketoacidosis. 2. Uncontrolled diabetes because of noncompliance. 3. Hypertension. PLAN: I will start the patient on lisinopril. Monitor blood sugar, seems to be improving. Will be transferred out of ICU and make a discharge plan tomorrow. Lanette Pickett MD
[2017-06-15 18:11] VITALS: RESP 20
[2017-06-16] MEDS: Pantoprazole 40 mg EC Tab PO SCH (06:02)
[2017-06-16 06:37] VITALS: TEMP 98.4; O2SAT 96
[2017-06-16 06:43] LABS: BASO # 0.04 K/mm3 (0.0-2.0); BASO % 0.4 % (0.0-3.0); EOS # 0.3 (0.0-0.7); EOS % 3.3 % (1.5-5.0); GRAN # 6.15 (1.4-6.5); GRAN % 63.9 % (50.0-68.0); HEMATOCRIT 42.3 % (42.0-52.0); LYMPH # 2.5 (1.2-3.4); LYMPH % 26.2 % (22.0-35.0); MEAN CELL VOLUME 84.8 fl (80.0-105.0); MEAN CORPUSCULAR HEMOGLOBIN 28.5 pg (25.0-35.0); MEAN CORPUSCULAR HGB CONC 33.6 g/dl (31.0-37.0); MEAN PLATELET VOLUME 11.1 fl (7.0-11.0); MONO # 0.6 (0.1-0.6); MONO % 6.2 % (1.0-6.0); RED CELL DISTRIBUTION WIDTH 14.8 % (11.5-14.5); WHITE BLOOD COUNT 9.6 10^3/ul (4.5-11.0)
[2017-06-16 07:06] LABS: BLOOD UREA NITROGEN 23 mg/dL (7-21); CALCIUM 9.2 mg/dL (8.4-10.5); CARBON DIOXIDE 24 mmol/L (21-33); CHLORIDE 107 mmol/L (98-107); GFR AFRICAN-AMERICAN > 60; GLUCOSE,RANDOM 227 mg/dL (70-110); SODIUM 139 mmol/L (132-148)
[2017-06-16] MEDS: Insulin Lispro (humaLOG) MEDIUM Coverage SC SCH ×2 (07:51→12:06)
[2017-06-16] MEDS: Insulin Detemir 100 units/ml Vial (Levemir) SC SCH (09:10)
[2017-06-16 12:17] VITALS: BP 121/74; PULSE 71
--- NOTE | 2017-06-16 15:25 | DS ---
HISTORY OF PRESENT ILLNESS: The patient is [id number], seen and examined, doing well. No nausea, vomiting. No diarrhea. No leg cramps. Eating and tolerating. Ambulating. PHYSICAL EXAMINATION: VITAL SIGNS: He is afebrile. Pulse 71, .respirations 20 and blood pressure 121/74. LUNGS: Bilateral fair airflow. No rhonchi or crackle. HEART: S1 and S2 audible. ABDOMEN: Soft and nontender. No rebound. No guarding. NEUROLOGIC: The patient is awake, alert, oriented and communicative. Bilateral leg no edema. LABORATORY DATA: WBC is 9.6, hemoglobin 14, hematocrit 42 and platelets 202. Chemistry: Sodium 139, potassium 4.3, chloride 107, CO2 of 24, BUN 23, creatinine 1.1, blood sugar of 227. Urinalysis is remarkable. ASSESSMENT: 1. Status post diabetic ketoacidosis. 2. Electrolyte imbalance. 3. Chronic degenerative disk disease. 4. Hypertension. PLAN: The patient is going to be discharged today. He is being discharged on glimepiride 4 mg twice a day, Janumet twice a day and ramipril 10 mg daily. I will followup in office and I will give him samples of Trulicity that he will be using once a week and he will monitor his blood sugar and followup with me. Lanette Pickett MD
== END 2017-06-16 14:38 | disposition home or self-care (01) | DRG 639 ==
LOC: ED 15:15 → ERH 18:26 → CCU 20:13 → 2RNO 06-15 12:22
PROVIDERS: ADMIT Internal Medicine; ATTEND Internal Medicine
DX: E11.10 Type 2 diabetes mellitus with ketoacidosis without coma (principal); E87.8 Other disorders of electrolyte and fluid balance, not elsewhere classified; I10 Essential (primary) hypertension; E78.5 Hyperlipidemia, unspecified; M51.9 Unspecified thoracic, thoracolumbar and lumbosacral intervertebral disc disorder; I48.91 Unspecified atrial fibrillation; M79.671 Pain in right foot; F41.9 Anxiety disorder, unspecified; E66.9 Obesity, unspecified; Z68.33 Body mass index [BMI] 33.0-33.9, adult; Z79.84 Long term (current) use of oral hypoglycemic drugs; Z91.19 Patient's noncompliance with other medical treatment and regimen; Z86.718 Personal history of other venous thrombosis and embolism

== ENCOUNTER 2017-10-03 08:03 | Inpatient (IN) | payer MEDICARE, OTHER ==
[2017-10-03] MEDS ORDERED: Bupivacaine 0.5% Inj(30mL) ONE ×2 (10:16→11:11)
[2017-10-03] MEDS ORDERED: Midazolam 2 MG/2 ML VIAL ONE (10:25)
[2017-10-03] MEDS ORDERED: Propofol 10 mg/ml Inj (20 ML) ONE ×2 (10:25→12:13)
[2017-10-03] MEDS ORDERED: Rocuronium 10 mg/ml (5 ml) ONE (11:07)
[2017-10-03] MEDS ORDERED: Succinylcholine 200 mg/10 ml Inj IV ONE (11:07)
[2017-10-03] MEDS ORDERED: Sevoflurane - Inhalation Anesthetic Liq (250 ml) ONE (11:08)
[2017-10-03] MEDS ORDERED: HYDROmorphone 0.5 mg/0.5 ml ISec IVP PRN (12:16)
[2017-10-03] MEDS ORDERED: HYDROmorphone 1 mg/ml ISec IVP PRN (12:19)
[2017-10-03] MEDS ORDERED: HYDROmorphone 0.5 mg/0.5 ml ISec ONE (12:32)
--- NOTE | 2017-10-03 12:37 | PCM.SURG1 ---
Surgeon's Initial Post Op Note - Surgeon's Notes Surgeon: Dr. Connell [employer] Supervisor: Melani Rosas PGY2 Type of Anesthesia: General Endo, Local Pre-Operative Diagnosis: Ventral hernia, umbilical hernia Operative Findings: multiple midline hernias. Thin midline fascia along linea alba superior to the umbilicus Post-Operative Diagnosis: same Operation Performed: umbilical hernia repair, ventral hernia repair, abdominoplasty Specimen/Specimens Removed: umbilical hernia sac Estimated Blood Loss: EBL {In ML}: 10 Blood Products Given: N/A Drains Used: Jose Post-Op Condition: Good Date of Surgery/Procedure: 10/03/17 Time of Surgery/Procedure: 10:30
[2017-10-03] MEDS ORDERED: HYDROmorphone 1 mg/ml PCA IV SCH (13:00)
[2017-10-03] MEDS ORDERED: HYDROmorphone 1 mg/ml PCA 25 ML IV SCH (13:15)
[2017-10-03] MEDS ORDERED: HYDROmorphone 2 mg/ml ISec ONE (13:19)
[2017-10-03] MEDS: oxyCODONE 30 mg Immediate Release Tab PO PRN ×2 (17:27→23:20)
[2017-10-03] MEDS: Insulin Reg-LOW-Coverage SC SCH (19:56)
[2017-10-03] MEDS ORDERED: guaiFENesin 600 mg ER Tab PO ONE (20:06)
[2017-10-03] MEDS: Methocarbamol 500 MG Tab PO SCH (21:26)
[2017-10-03 21:30] VITALS: BMI 33.4
[2017-10-03] MEDS ORDERED: Influenza Vaccine 60 mcg/0.5 mL SYR (4YR UP) IM ONE (21:30)
[2017-10-03] MEDS ORDERED: Pneumococcal 23-Valent Vaccine IM ONE (21:30)
[2017-10-04] MEDS ORDERED: HYDROmorphone 1 mg/ml PCA 25 ML IV SCH (01:27)
[2017-10-04] MEDS: oxyCODONE 30 mg Immediate Release Tab PO PRN ×3 (05:53→18:46)
[2017-10-04] MEDS: Insulin Reg-LOW-Coverage SC SCH ×5 (06:02→22:34)
[2017-10-04 09:39] LABS: BASO # 0.01 K/mm3 (0.0-2.0); BASO % 0.1 % (0.0-3.0); EOS # 0.1 (0.0-0.7); EOS % 0.7 % (1.5-5.0); GRAN # 7.53 (1.4-6.5); GRAN % 84.2 % (50.0-68.0); HEMOGLOBIN 12.2 g/dL (14.0-18.0); LYMPH # 0.9 (1.2-3.4); LYMPH % 10.3 % (22.0-35.0); MEAN CELL VOLUME 87.8 fl (80.0-105.0); MEAN CORPUSCULAR HEMOGLOBIN 28.7 pg (25.0-35.0); MEAN CORPUSCULAR HGB CONC 32.7 g/dl (31.0-37.0); MONO # 0.4 (0.1-0.6); MONO % 4.7 % (1.0-6.0); RBC 4.25 10^6/uL (3.5-6.1); RED CELL DISTRIBUTION WIDTH 14.1 % (11.5-14.5); WHITE BLOOD COUNT 8.9 10^3/ul (4.5-11.0)
[2017-10-04 09:50] LABS: BLOOD UREA NITROGEN 19 mg/dL (7-21); CALCIUM 9.7 mg/dL (8.4-10.5); GFR AFRICAN-AMERICAN > 60; GFR NON-AFRICAN AMERICAN > 60
[2017-10-04] MEDS ORDERED: HYDROmorphone 0.5 mg/0.5 ml ISec IVP PRN (09:56)
[2017-10-04] MEDS: Methocarbamol 500 MG Tab PO SCH ×4 (11:13→21:36)
[2017-10-04] MEDS ORDERED: HYDROmorphone 1 mg/ml ISec IVP PRN (12:40)
--- NOTE | 2017-10-04 19:28 | CP.PCM.PN ---
Subjective - Date & Time of Evaluation Date of Evaluation: 10/04/17 Time of Evaluation: 19:27 - Subjective Subjective: Patient seen and examined at bedside. States his pain is 4-5/10 at this time, denies fevers, chill, nausea, vomiting, is passing gas but no bowel movement Objective - Vital Signs/Intake and Output Vital Signs (last 24 hours): Temp Pulse Resp BP Pulse Ox 98.4 F 67 20 136/75 95 10/04/17 07:00 10/04/17 07:00 10/04/17 07:00 10/04/17 18:46 10/04/17 07:00 Intake and Output: 10/04/17 10/05/17 18:59 06:59 Intake Total 600 Output Total 300 Balance 300 - Medications Medications: Current Medications Alprazolam (Xanax) 2 mg PO TID PRN; Protocol PRN Reason: Anxiety Last Admin: 10/04/17 11:55 Dose: 2 mg Amlodipine Besylate (Norvasc) 10 mg PO DAILY ON [facility] OF [facility] Last Admin: 10/04/17 18:46 Dose: 10 mg Docusate Sodium (Colace) 100 mg PO BID ON [facility] OF [facility] Last Admin: 10/04/17 17:16 Dose: 100 mg Famotidine (Pepcid) 20 mg PO BID ON [facility] OF [facility] Last Admin: 10/04/17 17:16 Dose: 20 mg Glimepiride (Amaryl) 4 mg PO ACBD ON LICENSE OF [facility] Hydromorphone HCl (Dilaudid) 1 mg IVP Q4H PRN PRN Reason: Pain, severe (8-10) Last Admin: 10/03/17 12:55 Dose: 1 mg Hydromorphone HCl (Dilaudid) 0.5 mg IVP Q4H PRN PRN Reason: Pain, moderate (4-7) Insulin Human Regular (Humulin R Low) 0 units SC ACHS [facility] PRN Reason: Protocol Last Admin: 10/04/17 17:10 Dose: Not Given Ketorolac Tromethamine (Toradol) 30 mg IVP Q6 ON [facility] Last Admin: 10/04/17 17:15 Dose: 30 mg Methocarbamol (Robaxin) 500 mg PO QID ON [facility] OF [facility] Last Admin: 10/04/17 17:16 Dose: 500 mg Ondansetron HCl (Zofran Inj) 4 mg IVP Q6 PRN PRN Reason: Nausea/Vomiting Oxycodone HCl (Oxycodone Immediate Release Tab) 30 mg PO Q6H PRN PRN Reason: Pain, moderate (4-7) Last Admin: 10/04/17 18:46 Dose: 30 mg Ramipril (Altace) 10 mg PO DAILY [facility] Last Admin: 10/04/17 11:54 Dose: 10 mg Sitagliptin Phosphate (Januvia) 100 mg PO DAILY [facility] - Labs Labs: 10/04/17 09:00 10/04/17 09:00 - Constitutional Appears: Well, Non-toxic, No Acute Distress - Head Exam Head Exam: ATRAUMATIC, NORMOCEPHALIC - Eye Exam Eye Exam: Normal appearance. absent: Conjunctival injection, Scleral icterus - ENT Exam ENT Exam: Mucous Membranes Moist, Normal Oropharynx - Respiratory Exam Respiratory Exam: NORMAL BREATHING PATTERN. absent: Accessory Muscle Use, Respiratory Distress - GI/Abdominal Exam GI & Abdominal Exam: Distended (mild), Soft, Tenderness (mild vibha-incisional tenderness). absent: Rebound Additional comments: incision dressing with old moderate serosanguinous saturation, no active bleeding, dishcarge, or erythema - Neurological Exam Neurological Exam: Alert, Awake, Oriented x3 - Psychiatric Exam Psychiatric exam: Normal Affect, Normal Mood - Skin Skin Exam: Dry, Normal Color, Warm Assessment and Plan - Assessment and Plan (Free Text) Assessment: 62M POD #1 s/p umbilical and ventral hernia repair with mesh Plan: -PRN pain medication -Encourage ambulation and incentive spirometer use -HTN control per Dr. Pickett's recs -Continue current diet -Possible D/C tomorrow if pain well controlled on PO pain medicaiton Discussed with dr.Williams Melani Rosas, PGY2
[2017-10-05 02:23] VITALS: RESP 20
[2017-10-05] MEDS: oxyCODONE 30 mg Immediate Release Tab PO PRN ×2 (07:07→13:13)
--- NOTE | 2017-10-05 07:27 | CON ---
DATE: HISTORY OF PRESENT ILLNESS: Patient is a [id number], known to me from multiple previous admissions, who was electively brought in to have ventral hernia repair, done by Dr. Connell. There he had herniorrhaphy done yesterday. Today on examination, he complained of having some bleeding from the surgical site. No history of nausea or vomiting. No fever, no chills. PAST MEDICAL HISTORY: He has significant past medical history for: 1. Insulin-dependant diabetes. 2. Hypertension. 3. History of COPD. 4. Degenerative disk disease, status post multiple disk surgeries in remote past. 5. History of AFib, was on anticoagulant, but currently he is not on any anticoagulants. 6. History of right foot fracture. 7. History of DVT in the past. ALLERGIES: HE IS ALLERGIC TO TOBACCO. MEDICATIONS: At home, he is on Trulicity. He is taking Janumet twice a day, glimepiride 4 mg daily, Trulicity 1.5 subcutaneous once a week, Xanax 2.5 mg three times a day, Percocet as needed, Altace 10 mg daily. SOCIAL HISTORY: He is single, heavy smoker in the past, and socially drinks. REVIEW OF SYSTEMS: Significant for abdominal discomfort. PHYSICAL EXAMINATION GENERAL: He is awake, alert, oriented, communicative. VITAL SIGNS: He is afebrile, pulse 67, respirations 20, blood pressure 178/94. LUNGS: Bilateral fair airflow. No rhonchi or crackle. HEART: S1 and S2 audible. ABDOMEN: Soft and nontender. No rebound. No guarding. NEUROLOGIC: He is awake and alert, and able to communicate. ASSESSMENT: 1. Status post herniorrhaphy. 2. Non-insulin dependant diabetes. 3. Hypertension. 4. Hyperlipidemia. 5. Morbid obesity. PLAN: We will add Norvasc 10 mg daily since his blood pressure is running on high side. I will add Januvia 100 mg daily. Monitor his blood sugar. Resume his medications. I will increase his Amaryl to 4 mg before breakfast and dinner. We will reevaluate in the a.m. Lanette Pickett MD
[2017-10-05 07:33] VITALS: PULSE 70; O2SAT 98
[2017-10-05 07:50] LABS: BASO # 0.02 K/mm3 (0.0-2.0); BASO % 0.2 % (0.0-3.0); EOS % 0.2 % (1.5-5.0); GRAN # 10.99 (1.4-6.5); GRAN % 86.8 % (50.0-68.0); HEMOGLOBIN 12.4 g/dL (14.0-18.0); LYMPH # 0.9 (1.2-3.4); LYMPH % 6.8 % (22.0-35.0); MEAN CELL VOLUME 86.7 fl (80.0-105.0); MEAN CORPUSCULAR HEMOGLOBIN 28.4 pg (25.0-35.0); MEAN CORPUSCULAR HGB CONC 32.8 g/dl (31.0-37.0); MEAN PLATELET VOLUME 10.7 fl (7.0-11.0); MONO # 0.8 (0.1-0.6); RBC 4.36 10^6/uL (3.5-6.1); RED CELL DISTRIBUTION WIDTH 14.1 % (11.5-14.5); WHITE BLOOD COUNT 12.7 10^3/ul (4.5-11.0)
[2017-10-05 08:04] LABS: ALB/GLOB RATIO 1.2 (1.1-1.8); ALT/SGPT 40 U/L (7-56); AST/SGOT 30 U/L (17-59); BLOOD UREA NITROGEN 20 mg/dL (7-21); CALCIUM 9.2 mg/dL (8.4-10.5); GFR AFRICAN-AMERICAN > 60; GFR NON-AFRICAN AMERICAN > 60
[2017-10-05 08:24] VITALS: TEMP 98.6
[2017-10-05] MEDS: Insulin Reg-LOW-Coverage SC SCH ×2 (08:42→12:42)
[2017-10-05] MEDS: Methocarbamol 500 MG Tab PO SCH (09:53)
[2017-10-05 09:55] VITALS: BP 165/92
[2017-10-05] MEDS ORDERED: Enoxaparin 40 mg Syringe SC SCH (10:00)
--- NOTE | 2017-10-05 10:15 | CP.PCM.DIS ---
Provider - Provider Date of Admission: 10/03/17 15:05 Attending physician: Jose Francisco Connell MD Primary care physician: Lanette Pickett MD Time Spent in preparation of Discharge (in minutes): 45 Diagnosis - Discharge Diagnosis (1) Umbilical hernia Status: Resolved Priority: High (2) Diastasis recti Status: Resolved Priority: High (3) Ventral hernia Status: Resolved Priority: High (4) Diabetes mellitus Status: Chronic Priority: Low (5) Hypertension Status: Chronic Priority: Low (6) Back pain Status: Chronic Priority: Low Hospital Course - Lab Results Lab Results: Most Recent Lab Values WBC 12.7 10^3/ul (4.5-11.0) H D 10/05/17 07:30 RBC 4.36 10^6/uL (3.5-6.1) 10/05/17 07:30 Hgb 12.4 g/dL (14.0-18.0) L 10/05/17 07:30 Hct 37.8 % (42.0-52.0) L 10/05/17 07:30 MCV 86.7 fl (80.0-105.0) 10/05/17 07:30 MCH 28.4 pg (25.0-35.0) 10/05/17 07:30 MCHC 32.8 g/dl (31.0-37.0) 10/05/17 07:30 RDW 14.1 % (11.5-14.5) 10/05/17 07:30 Plt Count 202 10^3/uL (120.0-450.0) 10/05/17 07:30 MPV 10.7 fl (7.0-11.0) 10/05/17 07:30 Gran % 86.8 % (50.0-68.0) H 10/05/17 07:30 Lymph % (Auto) 6.8 % (22.0-35.0) L 10/05/17 07:30 [place] % (Auto) 6.0 % (1.0-6.0) 10/05/17 07:30 Eos % (Auto) 0.2 % (1.5-5.0) L 10/05/17 07:30 Baso % (Auto) 0.2 % (0.0-3.0) 10/05/17 07:30 Gran # 10.99 (1.4-6.5) H 10/05/17 07:30 Lymph # (Auto) 0.9 (1.2-3.4) L 10/05/17 07:30 [place] # (Auto) 0.8 (0.1-0.6) H 10/05/17 07:30 Eos # (Auto) 0.0 (0.0-0.7) 10/05/17 07:30 Baso # (Auto) 0.02 K/mm3 (0.0-2.0) 10/05/17 07:30 Sodium 143 mmol/L (132-148) 10/05/17 07:30 Potassium 3.7 mmol/L (3.6-5.0) 10/05/17 07:30 Chloride 108 mmol/L (98-107) H 10/05/17 07:30 Carbon Dioxide 22 mmol/L (21-33) 10/05/17 07:30 Anion Gap 17 (10-20) 10/05/17 07:30 BUN 20 mg/dL (7-21) 10/05/17 07:30 Creatinine 1.0 mg/dl (0.8-1.5) 10/05/17 07:30 Est GFR ( Amer) > 60 10/05/17 07:30 Est GFR (Non-Af Amer) > 60 10/05/17 07:30 POC Glucose (mg/dL) 133 mg/dL (65-110) H 10/05/17 07:40 Random Glucose 148 mg/dL (70-110) H 10/05/17 07:30 Hemoglobin A1c 6.1 % (4.2-6.5) 10/04/17 09:00 Calcium 9.2 mg/dL (8.4-10.5) 10/05/17 07:30 Total Bilirubin 1.5 mg/dL (0.2-1.3) H 10/05/17 07:30 AST 30 U/L (17-59) 10/05/17 07:30 ALT 40 U/L (7-56) 10/05/17 07:30 Alkaline Phosphatase 68 U/L (38-126) 10/05/17 07:30 Total Protein 7.3 g/dL (5.8-8.3) 02/15/18 07:30 Albumin 4.0 g/dL (3.0-4.8) 10/05/17 07:30 Globulin 3.3 gm/dL 10/05/17 07:30 Albumin/Globulin Ratio 1.2 (1.1-1.8) 10/05/17 07:30 - Hospital Course Hospital Course: Patient is a 62M with PMH of chronic pain medication use due to chronic back pain who came for a same day surgery for open repair of a chronic umbilical and ventral hernia with mesh. Patient underwent the procedure and was found to have diastasis recti in addition to the umbilcal and ventral hernias, which was also repaired. Patient was stable throughout the procedure and sent to PACU in good condition but had sever pain poorly controlled with PRN pain medication and had to be started on a SHUTTLE FITTING SUPERVISOR pump. Pt was admitted to med surgery floor. After the first night patient's pain was improved but not yet controlled. By POD#2 patient 's was tolerating a diet, pain was well controlled on PO pain medications, patient was having bowel function, and ambulating well. Patient expressed desire to return home, and this was deemed safe and appropriate by all physician 's involved in the case. Patient was discharged on home PO pain medication regimen with instructions to follow up with Dr. Connell in his office in one week. For full hospital course, please refer to chart Discharge Exam - Head Exam Head Exam: ATRAUMATIC, NORMOCEPHALIC - Eye Exam Eye Exam: Normal appearance. absent: Conjunctival injection, Scleral icterus - ENT Exam ENT Exam: Mucous Membranes Moist, Normal Oropharynx - Respiratory Exam Respiratory Exam: NORMAL BREATHING PATTERN, UNREMARKABLE. absent: Accessory Muscle Use, Respiratory Distress - Cardiovascular Exam Cardiovascular Exam: RRR - GI/Abdominal Exam GI & Abdominal Exam: Soft, Tenderness (appropriate post operative tenderness). absent: Distended, Rebound Additional comments: incision well approximated with lisa - Back Exam Back exam: absent: CVA tenderness (L), CVA tenderness (R) - Neurological Exam Neurological exam: Alert, Normal Gait, Oriented x3 - Psychiatric Exam Psychiatric exam: Normal Affect, Normal Mood - Skin Skin Exam: Dry, Intact (except as noted above), Normal Color, Warm Discharge Plan - Follow Up Plan Condition: GOOD Disposition: HOME/ ROUTINE Instructions: Abdominal Hernia Repair (DC), Influenza Virus Vaccine ( Inactivated), Why Vaccines Are Important for Everyone Additional Instructions: Call for an appointment with DR. Connell in 1 week Call for an apoitment with Dr. Pickett as soon as possible You may shower, but keep the dressing over the drain site dry if you do Remove the drain dressing on Monday Do no lift >10 pounds, if you are straining take over the counter stool softeners Call Dr. Connell or return to the hospital for fevers >100.4, pus of blood from the incision, or any other concerning symptoms Referrals: Lanette Pickett MD [Primary Care Provider] - Jose Francisco Connell MD [Staff Provider] -
--- NOTE | 2017-10-05 18:09 | PN ---
DATE: SUBJECTIVE: The patient is 62 years old, seen and examined, lying in bed, seems to be comfortable. No more bleeding from the wound. No nausea, vomiting. No diarrhea. PHYSICAL EXAMINATION: VITAL SIGNS: He is afebrile, pulse 70, respirations 20, blood pressure 165/92. LUNGS: Bilateral fair airflow. No rhonchi or crackle. HEART: S1 and S2 audible. ABDOMEN: Soft, obese. Slightly tender surgical site. No more active bleeding. Incision line seems to be healthy. LABORATORY DATA: WBC is 12.7, hemoglobin 12.4, hematocrit 37.8, platelet Of 202. Chemistry: Sodium 143, potassium 3.7, chloride 108, CO2 of 22, BUN 20, creatinine 1.0, blood sugar 142. ASSESSMENT: 1. Ventral hernia, status post herniorrhaphy. 2. Wyi-[id number]-[id number] diabetes. 3. Hypertension. 4. Degenerative disk disease. 5. Anxiety disorder. PLAN: The patient is going to be discharged today as per surgical team. He will resume his medication. He will follow up in the office in a week or two. Lanette Pickett MD
--- NOTE | 2017-10-11 00:04 | OP ---
PROCEDURE DATE: 10/03/2017 He is admitted on 10/03/2017 to room [facility], operated on 10/03/2017. SURGEON: Jose Francisco Connell MD. TRANSFORMATION CONSULTANT: Dr. Ralph DO, PGY-2. DIRECTOR GLOBAL INTELLIGENCE: Bacilio Thompson MD. ANESTHESIA: General endotracheal - Marcaine 0.5 - 20 mL PREOPERATIVE DIAGNOSES: 1. Incarcerated ventral and umbilical hernia. 2. Hypertension. 3. Hepatitis C. 4. Chronic spinal stenosis. POSTOPERATIVE DIAGNOSES: 1. Incarcerated ventral and umbilical hernia. 2. Hypertension. 3. Hepatitis C. 4. Chronic spinal stenosis. 5. Eventration of the diastases recti and ventral - umbilical hernia. OPERATION: 1. Ventral herniorrhaphy with a Ventralex 8 cm mesh. 2. Abdominoplasty. OPERATIVE INDICATIONS: The patient is a 62-year-old male, who presents from his private physician with progressively painful and incarcerating mass at the level of the umbilicus. On initial examination, he was found to have 2 separate lesions, one in the umbilicus and one just above it as well as discomfort and tenderness on ability to reduce this his hernia. 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 Toan James, who performed a cardiac cath and found the patient cleared for general anesthesia at this time. Risks, benefits and the alternatives with their anticipated outcomes were discussed with the patient and he signs the informed consent. He has described a new bulging in the epigastrium since his initial examination and he is concerned that this be repaired as well. This generally appears to represent the diastases recti and he will be evaluated once under anesthesia once the peritoneum is entered. OPERATIVE NOTE: The patient was brought to the operating room, identified by his wrist band, undergoes time-out procedure and then was placed on the table in a supine manner. Following the induction of the general anesthesia and insertion of an endotracheal tube. The abdomen was prepped with Hibiclens chlorhexidine preparation and he is aseptically draped. Midline incision was made just above the umbilicus down to same and sharp incision carried down through to the hernia bulging below. Hemostasis was contained with electrocautery current and the ventral hernia and umbilical hernias are dissected free and the hernia sac dissected off the anterior abdominal wall and submitted to pathology in formalin. Once the adhesions are free, the peritoneum is invaginated with the high lift operator's exam finger and the umbilical hernia is likewise encountered and this also is opened in continuity with the supraumbilical hernia. At this point, the midline epigastrium is examined and found to be extremely patulous and it is the opinion of this high lift operator that placing a mesh in this epigastric area would be inadequate for the patient's desire to reduce the bulging at this point. It is recommended and performed at this point that multiple 2-0 Surgidac polyester sutures are placed imbricating the diastasis recti to the midline from both lateral aspects. This closes the defect significantly more with an imbrication of the fascia upon itself. The basic hernia defect is now closed with an 8 cm Ventralex mesh placed intraperitoneally and brought up into the incision. The fascia is now closed with 0 Novafil [id number] interrupted sutures and the wings are cut off from the same. The subcutaneous space is now closed after infiltrating the fascia and the skin to facilitate postoperative analgesia. The skin is then closed with the AutoSuture skin stapler and a 15-Yemeni drain is placed into the incision, brought out through a trocar stem below the incision. It is secured with 2-0 Surgidac polyester suture. A dry dressing is applied. The patient is awakened, extubated and transported to the recovery room in a satisfactory condition. Sponge, instrument and suture count were verified as correct at the end of the procedure. Estimated blood loss during this procedure was less than 20 mL of blood. The patient was transported without any difficulty to recovery, but over the first hour, he required 5 separate injections of intravenous Dilaudid 1 mg and still complains that he is in too much pain. It is elected at this point that he will stay overnight and start with a patient-controlled analgesic pump. This dictation will be electronically signed without being read. Jose Francisco Connell MD
== END 2017-10-05 15:23 | disposition home or self-care (01) | DRG 355 ==
LOC: SDS 08:03 → 5RSO 15:05
PROVIDERS: ADMIT Surgery; ATTEND Surgery
PROC: 0WQF0ZZ Repair Abdominal Wall, Open Approach (ICD-10-PCS; 2017-10-03)
PROC: 0WUF0JZ Supplement Abdominal Wall with Synthetic Substitute, Open Approach (ICD-10-PCS; principal; 2017-10-03 10:00)
DX: K43.6 Other and unspecified ventral hernia with obstruction, without gangrene (principal); K42.0 Umbilical hernia with obstruction, without gangrene; E66.01 Morbid (severe) obesity due to excess calories; I48.91 Unspecified atrial fibrillation; I10 Essential (primary) hypertension; E11.9 Type 2 diabetes mellitus without complications; E78.5 Hyperlipidemia, unspecified; F41.9 Anxiety disorder, unspecified; M51.9 Unspecified thoracic, thoracolumbar and lumbosacral intervertebral disc disorder; B19.20 Unspecified viral hepatitis C without hepatic coma; M48.00 Spinal stenosis, site unspecified; Z68.33 Body mass index [BMI] 33.0-33.9, adult; Z79.84 Long term (current) use of oral hypoglycemic drugs; Z87.891 Personal history of nicotine dependence; Z86.718 Personal history of other venous thrombosis and embolism